=== PATIENT | female | born 1990 | race Caucasian/White ===

== ENCOUNTER 2018-09-02 13:03 | Outpatient (CLI) | payer BC, MEDICAID ==
--- NOTE | 2018-09-02 15:05 | MRI ---
MRI RIGHT KNEE WITHOUT CONTRAST: HISTORY: M25.561, knee pain. COMPARISON: None. FINDINGS: Medial Meniscus: Intact. Lateral Meniscus: Intact. ACL, PCL, MCL, and LCL are intact. Extensor Mechanism: The quadriceps tendon, patella, and patella tendon are all intact. Cartilage: Patellofemoral Compartment: Intact. Medial Compartment: Intact. Lateral Compartment: Intact. Soft Tissues: There is a small joint effusion. There is a moderate popliteus bursa effusion. There is mild synovitis in the popliteus bursa. 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 There are erosions along the subcortical surface of the proximal fibula. IMPRESSION: 1. No acute internal derangement. 2. 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 3. Mild synovitis within a distended popliteus bursa effusion. POS: [facility]
== END 2018-09-02 13:04 | disposition home or self-care (01) ==
LOC: BICMRI 13:03
PROVIDERS: ATTEND Internal Medicine Rheumatology
DX: M25.561 Pain in right knee (principal); M65.9 Synovitis and tenosynovitis, unspecified

== ENCOUNTER 2019-04-04 08:17 | Day surgery (SDC) | payer BC, OTHER ==
[2019-04-03 15:05] VITALS: BMI 23.7
[2019-04-04] MEDS ORDERED: ceFAZolin Sodium (SDC) 2 GM/100 ML BAG ONE (09:10)
[2019-04-04] MEDS ORDERED: Bupivacaine/Epinephrine 0.25% 30 ML VIAL ONE (09:41)
[2019-04-04] MEDS ORDERED: Lidocaine 2% PF 5 ML VIAL ONE (09:41)
[2019-04-04] MEDS ORDERED: Gelfilm 1 EA Packet ONE (09:41)
[2019-04-04] MEDS ORDERED: Fentanyl 100 MCG/2 ML VIAL ONE (09:42)
[2019-04-04] MEDS ORDERED: Lidocaine 2% Jelly 5 ML TUBE ONE (09:43)
[2019-04-04] MEDS ORDERED: Midazolam HCl 2 mg/2 ml Vial ONE (09:57)
--- NOTE | 2019-04-04 11:14 | OP ---
DATE OF PROCEDURE: 04/04/2019 PREOPERATIVE DIAGNOSIS: Anal condyloma. POSTOPERATIVE DIAGNOSIS: Anal condyloma. PROCEDURE PERFORMED: Fulguration of anal condyloma, moderate amount. ANESTHESIA: General. ESTIMATED BLOOD LOSS: Minimal. COMPLICATIONS: None. FINDINGS: No obvious mass. DESCRIPTION OF PROCEDURE: The patient was taken to the operating room and laid supine on the operating room table. After general anesthetic was obtained, she was placed in lithotomy position. Her perineal area was prepped and draped in a sterile fashion. Vaginal exam revealed no obvious vaginal canal or external labia condyloma. There are multiple on the external surface of the anus and into the anal canal. These were all burned using cautery. The condylomas then slough off. The bases were then re-cauterized. All obvious gross condyloma tissue was burned and removed. The patient was en route to recovery in stable condition. All instrument counts, needle counts, and lap counts were correct. Job ID: [id number]
== END 2019-04-04 12:31 | disposition home or self-care (01) ==
LOC: SDC 08:17
PROVIDERS: ATTEND Surgery
PROC: 0D5QXZZ Destruction of Anus, External Approach (ICD-10-PCS; principal; 2019-04-04)
DX: A63.0 Anogenital (venereal) warts (principal); Z91.040 Latex allergy status
CPT/HCPCS: J0690; J2001; J2250; J3010

== ENCOUNTER 2019-05-22 10:08 | Day surgery (SDC) | payer BC, OTHER ==
[2019-05-19 11:24] VITALS: BMI 23.0
[2019-05-22] MEDS ORDERED: Midazolam HCl 2 mg/2 ml Vial ONE (11:05)
[2019-05-22] MEDS ORDERED: Fentanyl 100 MCG/2 ML VIAL ONE ×2 (11:15→13:02)
[2019-05-22] MEDS ORDERED: Bupivacaine/Epinephrine 0.25% 30 ML VIAL ONE (11:39)
[2019-05-22] MEDS ORDERED: Promethazine HCl 25 MG/ML VIAL ONE (12:50)
[2019-05-22] MEDS ORDERED: Dexamethasone 20 MG/5 ML VIAL ONE (14:41)
[2019-05-22] MEDS ORDERED: PROPOFOL 200 MG/20 ML VIAL ONE (14:41)
[2019-05-22] MEDS ORDERED: Ondansetron PF 4 MG/2 ML Vial ONE (14:41)
[2019-05-22] MEDS ORDERED: Glycopyrrolate 0.2 MG/ML 5 ML SYRINGE ONE (14:41)
[2019-05-22] MEDS ORDERED: Rocuronium Bromide 10 MG/ML (10ML VIAL) ONE (14:41)
[2019-05-22] MEDS ORDERED: HYDROcodone/Acetaminophen 5/325 mg Tablet ONE (15:19)
--- NOTE | 2019-05-23 11:36 | OP ---
DATE OF PROCEDURE: 05/22/2019 PREOPERATIVE DIAGNOSIS: Chronic biliary dyskinesia. POSTOPERATIVE DIAGNOSIS: Chronic biliary dyskinesia. PROCEDURE PERFORMED: Laparoscopic cholecystectomy. ANESTHESIA: General. ESTIMATED BLOOD LOSS: Minimal. COMPLICATIONS: None. SPECIMEN: Gallbladder. FINDINGS: Chronic cholecystitis. PROCEDURE IN DETAIL: The patient was taken to the operating room and laid supine on the operating room table. After general anesthetic was obtained, the abdomen was prepped and draped in a sterile fashion. A curved incision was made below the umbilicus. Cautery was used to dissect down to the umbilical fascia. Umbilical fascia was incised and held up using a Pablo. The abdominal cavity was entered using a Cseia clamp. Holding stitch of Vicryl was placed on each side of the fascia. Mccormick trocar was placed. High-flow pneumoperitoneum was obtained. An upper midline 5 mm port and 2 right upper quadrant 5 mm ports were placed under direct camera visualization. The gallbladder was retracted from the gallbladder fossa. The peritoneum of the gallbladder was opened anteriorly and posteriorly. The critical view triangle was seen showing only the cystic duct and cystic artery branching from medial to lateral. There were no other branching structures. Two clips were placed proximally on the cystic duct and one laterally. It was cut using laparoscopic scissors. The cystic artery was taken in the same way. Electrocautery was then used to dissect the gallbladder out of the gallbladder fossa. The gallbladder was placed in an Endo catch bag and brought out through the Mccormick. There was no bleeding or bile in the liver bed. The cystic duct stump and cystic artery stump were intact, without evidence of extravasation or bleeding. All port sites were infiltrated using local anesthesia. All ports were removed under camera visualization. Pneumoperitoneum was let down. The Vicryl was used to close the fascial defect below the umbilicus. All incisions were irrigated and closed using 4-0 Monocryl and Dermabond. The patient was en route to Recovery in stable condition. All instrument counts, needle counts and lap counts were correct. Job ID: [id number]
== END 2019-05-22 18:09 | disposition home or self-care (01) ==
LOC: SDC 10:08
PROVIDERS: ATTEND Surgery
PROC: 0FT44ZZ Resection of Gallbladder, Percutaneous Endoscopic Approach (ICD-10-PCS; principal; 2019-05-22)
DX: K81.1 Chronic cholecystitis (principal); K82.8 Other specified diseases of gallbladder; N17.9 Acute kidney failure, unspecified; H54.8 Legal blindness, as defined in USA; M19.90 Unspecified osteoarthritis, unspecified site; Z79.899 Other long term (current) drug therapy; Z91.040 Latex allergy status
CPT/HCPCS: 88304; J0690; J1100; J2250; J2405; J2550; J2704; J3010

== ENCOUNTER 2021-10-22 10:56 | Outpatient (CLI) | payer BC, OTHER | END 2021-10-22 10:57 | disposition home or self-care (01) | LOC: CTENTCT 10:56 | PROVIDERS: ATTEND Otolaryngology Plastic Surgery within the Head & Neck | DX: J32.8 Other chronic sinusitis (principal) | CPT/HCPCS: 70486 ==